=== PATIENT | male | born 1945 | race Caucasian/White ===

== ENCOUNTER → 2020-01-16 | Day surgery (SDC) | payer MEDICARE, OTHER ==
[2020-01-11 12:20] LABS: BASOPHILS % 0.4 % (0.0-1.0); EOSINOPHILS # (AUTO) 0.2 (0.0-0.4); EOSINOPHILS % 2.4 % (0.0-6.0); HEMOGLOBIN 12.8 g/dL (14.0-18.0); LYMPHOCYTES # (AUTO) 2.6 (1.0-3.2); LYMPHOCYTES % 36.7 % (18.0-39.1); MEAN CORPUSCULAR HEMOGLOBIN 31.8 pg (28-32); MEAN CORPUSCULAR HGB CONC 32.8 g/dL (31-35); MONOCYTES # (AUTO) 0.8 (0.2-0.8); MONOCYTES % 10.8 % (4.4-11.3); NEUTROPHILS # (AUTO) 3.4 (2.1-6.9); NEUTROPHILS % 49.6 % (38.7-80.0); PLATELET COUNT 299 x10e3/uL (140-360); RED BLOOD COUNT 4.02 x10e6/uL (4.3-5.7); RED CELL DISTRIBUTION WIDTH 12.4 % (11.7-14.4)
[2020-01-11 12:44] LABS: ALBUMIN/GLOBULIN RATIO 1.4 (0.8-2.0); ANION GAP 13.4 mmol/L (8-16); CALCIUM 8.8 mg/dL (8.4-10.2); CREATININE, SERUM 1.45 mg/dL (0.72-1.25); POTASSIUM 5.4 mmol/L (3.5-5.1)
[2020-01-16] VITALS (9 sets, daily range): BP systolic 112–161; BP diastolic 79–100
[~2020-01-16] VITALS: Ht 177.8 cm; Wt 77.1 kg
[~2020-01-16] MED LIST: ADCIRCA20 MG PO; ALPRAZOLAM 0.5 MG TAB ONE; ASPIR 8181 MG PO; ATORVASTATIN CA20 MG PO; CARVEDILOL3.125 MG PO; DIPHENHYDRAMINE HCL 25 MG CAP ONE; ENTRESTO 24 MG1 EACH PO; FENTANYL CITRATE/PF 100MCG/2 ML INJ ONE; HEPARIN SOD/SOD CHLORIDE 2,000 ML ONE; IOPAMIDOL 370 MG/ML 200 ML INFUS..BTL INJ ONE; LIDOCAINE HCL 2% LOCAL 20 ML VIAL ONE; MIDAZOLAM HCL 2 MG/2 ML VIAL ONE; OMEPRAZOLE40 MG PO; PRAVASTATIN SOD20 MG PO; SODIUM CHLORIDE 0.9% 1000ML 1,000 ML ONE
--- NOTE | 2020-01-16 14:40 | Operative Report ---
DATE OF PROCEDURE: 01/16/2020 SURGEON: Yakov Wilson MD INDICATIONS: Coronary artery disease, abnormal stress test. PROCEDURES PERFORMED: 1. Ultrasound-guided access in the right radial artery with sheath placement. 2. Conscious sedation administration, hemodynamic and neurological monitoring and recovery by parking inspector RN, supervision by , 35 minutes. 3. Left heart catheterization, selective coronary angiography. 4. Deployment of right wrist TR band. COMPLICATIONS: None. RECOMMENDATION: Medical therapy. DESCRIPTION OF PROCEDURE: Access was obtained in the right radial artery using ultrasound guidance. A 5-[place] sheath was placed. Coronary angiography demonstrated 50% mid left anterior descending artery stenosis. Calcified lesion type C. Remaining vessels had diffuse 30% to 50% stenosis. Right coronary artery was nondominant. LV end-diastolic pressure was normal. No intervention deemed necessary. Right wrist TR band applied the patient discharged home same day. Yakov Wilson MD [facility] /[id number]
== END | disposition home or self-care (01) ==
LOC: CATH LAB 10:24
PROVIDERS: ATTEND Internal Medicine Interventional Cardiology
DX: I25.118 Atherosclerotic heart disease of native coronary artery with other forms of angina pectoris (principal); Z88.0 Allergy status to penicillin; Z91.018 Allergy to other foods; I50.9 Heart failure, unspecified; I73.9 Peripheral vascular disease, unspecified; I82.493 Acute embolism and thrombosis of other specified deep vein of lower extremity, bilateral; E78.00 Pure hypercholesterolemia, unspecified; N28.9 Disorder of kidney and ureter, unspecified; Z83.3 Family history of diabetes mellitus; Z82.49 Family history of ischemic heart disease and other diseases of the circulatory system; Z82.3 Family history of stroke; Z01.812 Encounter for preprocedural laboratory examination; Z11.59 Encounter for screening for other viral diseases
CPT/HCPCS: 36415; 76937; 80053; 85025; 93454; C1769 ×2; C1887; J2001; J2250; J3010; J7030; Q9967; U0002; 99152